=== PATIENT | male | born 1980 | race American Indian/Alaskan Native ===

== ENCOUNTER 2019-01-10 21:47 | Emergency (ER) | payer SELFPAY ==
--- NOTE | 2019-01-10 22:04 | Event Note ---
ED Screening Note Date of service: 01/10/19 Time: 22:00 ED Screening Note: 38 y o male presents with right sided groin pain and dysuria States noticed a sore sometime ago This initial assessment/diagnostic orders/clinical plan/treatment(s) is/are subject to change based on patients health status, clinical progression and re- assessment by fellow clinical providers in the ED. Further treatment and workup at subsequent clinical providers discretion. Patient/guardian urged not to elope from the ED as their condition may be serious if not clinically assessed and managed. Initial orders include: ua
[2019-01-11] MEDS ORDERED: ROCEPHIN IM ONE (00:36)
[2019-01-11] MEDS ORDERED: ZITHROMAX PO ONE (00:36)
[2019-01-11 02:40] LABS: Bilirubin,Urine NEG (Negative); Blood,Urine NEG (Negative); Color,Urine Yellow (Yellow); Protein,Urine <15 mg/dL mg/dL (Negative); Urobilinogen,Urine < 2.0 mg/dL (<2.0); WBC,Urine < 1.0 /HPF (0.0-6.0)
--- NOTE | 2019-01-11 03:29 | Emergency Department Report ---
ED Male HPI - General Chief complaint: Urogenital-Male Stated complaint: POSSIBLE STD Time Seen by Provider: 01/10/19 21:59 Source: patient Mode of arrival: Ambulatory Limitations: No Limitations - History of Present Illness Initial comments: Patient is a 38-year-old [place] male with no past medical history presents with a complaint of acute onset persistent suprapubic pressure, dysuria, urinary frequency and urgency and penile discharge for the last 2 weeks. Patient denies fever, chills, nausea, vomiting, testicular pain, diarrhea, traumatic injury, headache, hematuria, chest pain, shortness of breath or low back pain. MD Complaint: penile discharge, dysuria -: Gradual, week(s) (2) Location: penis Radiation: none Severity: moderate Severity scale (0 -10): 4 Quality: aching, burning Consistency: constant Improves with: none Worsens with: urination denies other symptoms, discharge. denies: swelling, mass, rash, urinary retention, blood in urine, dysuria, fever, nausea/vomiting, other - Related Data Sexually active: Yes Allergies Allergy/AdvReac Type Severity Reaction Status Date / Time banana Allergy Vomiting Verified 01/10/19 21:50 ED Review of Systems ROS: Stated complaint: POSSIBLE STD Other details as noted in HPI Constitutional: denies: chills, fever Eyes: denies: eye pain, eye discharge, vision change ENT: denies: ear pain, throat pain Respiratory: denies: cough, shortness of breath, wheezing Cardiovascular: denies: chest pain, palpitations Endocrine: no symptoms reported Gastrointestinal: denies: abdominal pain, nausea, diarrhea Genitourinary: urgency, dysuria, frequency, discharge. denies: testicular pain, testicular mass Musculoskeletal: denies: back pain, joint swelling, arthralgia Skin: denies: rash, lesions Neurological: denies: headache, weakness, paresthesias Psychiatric: denies: anxiety, depression Hematological/Lymphatic: denies: easy bleeding, easy bruising ED Past Medical Hx - Past Medical History Previous Medical History?: No - Surgical History Past Surgical History?: No - Social History Smoking Status: Never Smoker Substance Use Type: None ED Physical Exam - General Limitations: No Limitations General appearance: alert, in no apparent distress - Head Head exam: Present: atraumatic, normocephalic, normal inspection - Eye Eye exam: Present: normal appearance, PERRL, EOMI Pupils: Present: normal accommodation - ENT ENT exam: Present: normal exam, normal orophraynx, mucous membranes moist, TM's normal bilaterally, normal external ear exam - Neck Neck exam: Present: normal inspection, full ROM - Respiratory Respiratory exam: Present: normal lung sounds bilaterally. Absent: respiratory distress, wheezes, rales, chest wall tenderness - Cardiovascular Cardiovascular Exam: Present: regular rate, normal rhythm, normal heart sounds. Absent: systolic murmur, diastolic murmur, rubs, gallop - GI/Abdominal GI/Abdominal exam: Present: soft, normal bowel sounds. Absent: tenderness, guarding, rebound, hyperactive bowel sounds, organomegaly - Rectal Rectal exam: Present: deferred - exam: Present: normal inspection External exam: Present: normal external exam - Extremities Exam Extremities exam: Present: normal inspection, normal capillary refill - Back Exam Back exam: Present: normal inspection - Neurological Exam Neurological exam: Present: alert, oriented X3 - Psychiatric Psychiatric exam: Present: normal affect, normal mood - Skin Skin exam: Present: warm, dry, intact, normal color. Absent: rash ED Course - Reevaluation(s) Reevaluation #1: 01/11/19 03:27 This is a 38 yo male who presented to the ED with dysuria, suprapubic pressure, urinary frequency and urgency, penile discharge and dysuria for 2 weeks. In the ED, patient is alert and oriented 3 and is not in distress with normal vital signs. Patient was treated in the ED and the telephone subjective transmitted disease chlamydia and gonorrhea and was discharged home and advised to follow up at [facility] for further tests of other STDs. Patient was offered counseling on safe sexual practices. ED Medical Decision Making - Medical Decision Making This is a 38 yo male who presented to the ED with dysuria, suprapubic pressure, urinary frequency and urgency, penile discharge and dysuria for 2 weeks. In the ED, patient is alert and oriented 3 and is not in distress with normal vital signs. Patient was treated in the ED and the telephone subjective transmitted disease chlamydia and gonorrhea and was discharged home and advised to follow up at [facility] for further tests of other STDs. Patient was offered counseling on safe sexual practices. - Differential Diagnosis Acute UTI; STD; Trichomonas Critical care attestation.: If time is entered above; I have spent that time in minutes in the direct care of this critically ill patient, excluding procedure time. ED Disposition Clinical Impression: STD (sexually transmitted disease), Urethritis, unspecified Disposition: DC- TO HOME OR SELFCARE Is pt being admited?: No Does the pt Need Aspirin: No Condition: Stable Instructions: Nonspecific Urethritis in Men (ED), Sexually Transmitted Diseases (ED), Safe Sex (ED) Additional Instructions: Follow-up at the [facility] for further tests or further STDs. Return to the ED immediately if symptoms get worse. Referrals: MACEY MOMIN MD [Primary Care Provider] - 3-5 Days Forms: STI Treatment and Prevention Time of Disposition: 03:30 Print Language: ARABIC
[2019-01-11 03:38] VITALS: BP 109/76
== END 2019-01-11 03:37 | disposition home or self-care (01) ==
LOC: ED 21:47
DX: N34.2 Other urethritis (principal); A64 Unspecified sexually transmitted disease; Z91.018 Allergy to other foods
CPT/HCPCS: 81001; 87591; 96372; 99283; J0696